=== PATIENT | male | born 1970 | race Caucasian/White ===

== ENCOUNTER 2016-06-01 20:53 | Emergency (ER) | payer MEDICAID ==
[2016-06-01 21:05] VITALS: RESP 18; TEMP 97.9
[2016-06-01] MEDS ORDERED: predniSONE 20 MG TAB PO ONE (21:14)
[2016-06-01] MEDS ORDERED: FAMOTIDINE 20 MG/2 ML SDV IVP ONE (21:15)
[2016-06-01] MEDS ORDERED: NS 1,000 ML IV ONE (21:15)
--- NOTE | 2016-06-01 21:33 | EDPHY ---
H & P Stated Complaint: allergic rxn-epi via EMS - Personal History Current Tetanus Diphtheria and Acellular Pertussis (TDAP): Yes - Medical/Surgical History Hx Asthma: Yes Hx Chronic Respiratory Disease: No Hx Diabetes: No Hx Cardiac Disease: No Hx Renal Disease: No Hx Cirrhosis: No Hx Alcoholism: No Hx HIV/AIDS: No Hx Splenectomy or Spleen Trauma: No Other PMH: l-1 fx, R shoulder injury - Social History Smoking Status: Heavy smoker HPI/ROS: Chief complaint: Allergic reaction History of present illness: This is a 45-year-old male brought to the emergency department by EMS for evaluation and treatment of an allergic reaction. Patient reports a history of severe allergic reaction to shellfish. He states he was eating dinner tonight, frozen fish filet, when he started to have a another reaction. He states he felt like his throat was getting tight, he developed trouble breathing, he started to itch all over and started to notice a rash develope on his arms. He knew symptoms would worsen and therefore he called EMS. EMS provided him with epinephrine, Solu-Medrol and Benadryl. Patient has had improvement of symptoms. He states this is a typical allergic reaction. He is currently out of epi pens and needs a refill. He denies other associated signs or symptoms. Review of systems: A 10 point review of systems was obtained and other than described above was negative (Yan Marcos) - Physical Exam Exam: General Appearance: Alert, nontoxic. Eyes: Pupils equal and round no pallor or injection. ENT, Mouth: No angioedema, no hoarseness, no drooling, no stridor. Respiratory: There are no retractions, lungs are clear to auscultation. Cardiovascular: Regular rate and rhythm. Gastrointestinal: Abdomen is soft and nontender, no masses, bowel sounds normal. Neurological: Alert and oriented. Strength and sensation intact and symmetrical. Skin: Warm and dry, no rashes. Musculoskeletal: Neck is supple nontender. Extremities are symmetrical, full range of motion. Psychiatric: Patient is oriented X 3, there is no agitation. (Yan Marcos) Constitutional: Initial Vital Signs Temperature (C) 36.6 C 06/01/16 21:03 Heart Rate 100 06/01/16 21:03 Respiratory Rate 18 06/01/16 21:03 Blood Pressure 143/74 H 06/01/16 21:03 O2 Sat (%) 96 06/01/16 21:03 O2 Delivery Mode Room Air Allergies/Adverse Reactions: Shellfish *RETIRED-01/31/12 [Shellfish] Allergy (Verified 06/01/16 20:59) Home Medications: Medication Instructions Recorded EPINEPHRINE [EPIPEN] 0.3 mg IM ONCE #2 syr 06/01/16 predniSONE 60 mg PO DAILY 4 Days 06/01/16 Medical Decision Making ED Course/Re-evaluation: Patient seen under the supervision of my secondary supervising physician Dr. Ovi Go. Patient presents to the emergency department with EMS concerned he is having an allergic reaction. He reports a history of severe allergic reactions. On presentation he is nontoxic. He is given IV fluid. He is given a dose of prednisone, he is given additional Benadryl and Pepcid. I have asked to observe him in the emergency room for a number of hours, he has declined, he is adamantly asking to be discharged home. I have discussed with him this is against medical advice as his symptoms could return and are potentially life threatening. He has voiced understanding, I believe he is capable of understanding this and would like to be discharged. He is discharged on a course of prednisone. Asked to continue Benadryl and Pepcid. His epi pens are refilled. He is asked to follow up with a primary care doctor this week for recheck. Strict return precautions are given. Patient voiced understanding and agreement with plan. (Yan Marcos) I did not see this patient while he was in the emergency department. However his care was discussed with the PA while the patient was in the department. I agree with treatment plan and management (Ovi Go) Differential Diagnosis: Included but not limited to allergic reaction, angioedema, anaphylaxis, scromboid reaction (Yan Marcos) - Data Points Medications Given: Discontinued Medications Diphenhydramine HCl (Benadryl Injection) 25 mg IVP EDNOW ONE Stop: 06/01/16 21:15 Last Admin: 06/01/16 21:40 Dose: 25 mg Famotidine (Pepcid) 20 mg IVP EDNOW ONE Stop: 06/01/16 21:16 Last Admin: 06/01/16 21:40 Dose: 20 mg Sodium Chloride (Ns) 1,000 mls @ 0 mls/hr IV ONCE ONE PRN Reason: Wide Open Stop: 06/01/16 21:16 Last Admin: 06/01/16 21:41 Dose: 1,000 mls Prednisone (Prednisone) 60 mg PO EDNOW ONE Stop: 06/01/16 21:15 Last Admin: 06/01/16 21:41 Dose: 60 mg Departure - Departure Disposition: Home, Routine, Self-Care Clinical Impression: Allergic reaction Condition: Good Instructions: Allergies (ED), Anaphylaxis (ED) Additional Instructions: Please follow-up with a primary care doctor this week for recheck Continue to take prednisone until finished Use [id number] Benadryl and Pepcid as directed for the next 3 days If symptoms worsen or new symptoms developed using epinephrine pen and return immediately to the emergency room or call 911 You were offered observation in the emergency room for a number of hours to ensure symptoms do not return or worsen, you declined, this is against medical advice Referrals: NONE *PRIMARY CARE P,. [Primary Care Provider] - As per Instructions Prescriptions: EPINEPHRINE [EPIPEN] 0.3 mg IM ONCE #2 syr predniSONE 60 mg PO DAILY 4 Days
[2016-06-01 21:55] VITALS: BP 128/88; PULSE 87; O2SAT 97
== END 2016-06-01 21:56 | disposition home or self-care (01) ==
LOC: EDUNIT#
DX: T78.1XXA Other adverse food reactions, not elsewhere classified, initial encounter (principal); J45.909 Unspecified asthma, uncomplicated; F17.200 Nicotine dependence, unspecified, uncomplicated
CPT/HCPCS: 96374

== ENCOUNTER 2016-06-12 20:22 | Emergency (ER) | payer MEDICAID ==
[2016-06-12] MEDS ORDERED: IPRATROPIUM/ALBUTEROL 3 ML DEYVIAL IH ONE (20:30)
[2016-06-12 20:38] VITALS: RESP 20
[2016-06-12] MEDS ORDERED: NS 1,000 ML IV ONE (20:43)
[2016-06-12] MEDS ORDERED: FAMOTIDINE 20 MG/NACL 50 ML IV ONE (20:43)
--- NOTE | 2016-06-12 20:57 | EDPHY ---
H & P HPI/ROS: CHIEF COMPLAINT: allergic reaction HISTORY OF PRESENT ILLNESS: The patient is a 45-year-old male with a history of asthma and allergic reaction who presents emergency department after developing allergic reaction just prior to arrival. Patient is not sure of his exposure. He states he has an allergy to nuts in the past. He developed throat and chest tightness. He took his EpiPen x2. EMS was contacted. On EMS arrival the patient stated that his throat was feeling tight and he could not breathe. The tractor trailer mechanic reports the patient was talking to him because of his complaint gave him an additional EpiPen. Patient was also given Solu-Medrol 125 mg IV and Benadryl IV. The patient states his symptoms are mildly improving. He denies any chest pain or headache. No fevers or chills. REVIEW OF SYSTEMS: My complete review of systems is negative except as mentioned in the HPI. Past Medical/Surgical History: Includes asthma and allergic reaction Smoking Status: Heavy smoker Physical Exam: Vitals noted GENERAL: No acute distress, alert. HEENT: Eyes normal to inspection, no signs of dehydration. Normal pharynx. No swelling. Uvula is midline. NECK: No thyromegaly, no lymphadenopathy, supple. No stridor RESPIRATORY: Clear to auscultation bilaterally, no rales, rhonchi or wheezing. CVS: Regular rate and rhythm, no rubs, murmurs, or gallops. ABDOMEN: Soft, nontender, nondistended, no organomegaly. BACK: Normal to inspection, no CVA tenderness. SKIN: Normal color, no rash, warm, dry. No pallor. EXTREMITIES: No pedal edema, no calf tenderness, no joint swelling. NEURO/PSYCH: Alert and oriented x3, normal mood and affect, normal motor sensory exam. Constitutional: Initial Vital Signs Temperature (C) 36.4 C 06/12/16 20:32 Heart Rate 121 H 06/12/16 20:32 Respiratory Rate 20 06/12/16 20:32 Blood Pressure 114/69 06/12/16 20:32 O2 Sat (%) 98 06/12/16 20:32 O2 (L/minute) 2 Allergies/Adverse Reactions: Shellfish *RETIRED-01/31/12 [Shellfish] Allergy (Verified 06/12/16 20:31) Home Medications: Medication Instructions Recorded EPINEPHRINE [EPIPEN] 0.3 mg IM ONCE #2 syr 06/01/16 predniSONE 60 mg PO DAILY 4 Days 06/01/16 EPINEPHRINE [EPIPEN] 0.3 mg IJ ONCE PRN #1 06/12/16 predniSONE 40 mg PO DAILY 4 Days 06/12/16 Medical Decision Making ED Course/Re-evaluation: In the emergency department I met EMS on arrival in took report. The patient was given Pepcid 20 mg IV. Patient was given albuterol for his reported chest tightness. I rechecked the patient. He was lying comfortably in the bed. He thinks the albuterol may have helped. On repeat exam is breath sounds are clear to auscultation bilaterally. He has no pharyngeal swelling. 835: The patient is doing well. He is resting comfortably in bed. No airway swelling or compromise. Clear to auscultation bilaterally. 915: The patient is doing well. No respiratory distress. Clear to auscultation bilaterally. No pharyngeal swelling. I discussed the plan with the patient. He feels comfortable with discharge. He will be given a prescription for steroid. He was given a prescription for EpiPen. Differential Diagnosis: My differential includes but is not limited to anaphylactoid reaction, anaphylaxis, allergic reaction, asthma exacerbation, reactive airway disease - Data Points Medications Given: Discontinued Medications Albuterol/Ipratropium (Duoneb) 3 ml IH EDNOW ONE Stop: 06/12/16 20:31 Last Admin: 06/12/16 20:52 Dose: 3 ml Famotidine/Sodium Chloride (Pepcid 20 Mg (Premix)) 50 mls @ 200 mls/hr IV ONCE ONE Stop: 06/12/16 20:57 Last Admin: 06/12/16 20:28 Dose: 50 mls Sodium Chloride (Ns) 1,000 mls @ 0 mls/hr IV ONCE ONE PRN Reason: Wide Open Stop: 06/12/16 20:44 Last Admin: 06/12/16 20:28 Dose: 1,000 mls Departure - Departure Disposition: Home, Routine, Self-Care Clinical Impression: Allergic reaction Qualifiers: Encounter type: initial encounter Qualifier Code: (T78.40XA) Allergy, unspecified, initial encounter Acute anaphylaxis Qualifiers: Encounter type: initial encounter Qualifier Code: (T78.2XXA) Anaphylactic shock , unspecified, initial encounter Condition: Good Instructions: Anaphylaxis (ED) Additional Instructions: Return with increasing shortness of breath, wheezing, throat tightness, or any other concerns. Take your entire course prednisone. Referrals: Mónica Ambrocio MD [Medical Doctor] - 2-3 days, call for appt.
[2016-06-12] MEDS ORDERED: ALBUTEROL INH PREPACK MDI TAKEHOME ONE ×2 (22:10→22:20)
[2016-06-12 22:19] VITALS: BP 106/62; PULSE 116; TEMP 97.7; O2SAT 92
== END 2016-06-12 22:20 | disposition home or self-care (01) ==
LOC: EDUNIT#
DX: T78.2XXA Anaphylactic shock, unspecified, initial encounter (principal); T78.40XA Allergy, unspecified, initial encounter; J45.909 Unspecified asthma, uncomplicated; F17.200 Nicotine dependence, unspecified, uncomplicated
CPT/HCPCS: 96365